=== PATIENT | male | born 1940 | race Caucasian/White ===

== ENCOUNTER → 2023-03-15 11:10 | Outpatient (REF) | payer MEDICARE, OTHER, SELFPAY ==
[2023-03-15 12:07] LABS: % Basophils 0.4 % (0-2); % Eosinophils 1.6 % (0-6); % Immature Granulocytes 0.5 % (0-0.5); % Lymphocytes 58.8 % (20.5-51.1); % Monocytes 6.4 % (1.7-9.3); % Neutrophils 32.3 % (42.2-75.2); Absolute Eosinophils 0.2 10^3/uL (0-0.7); Absolute Immature Granulocytes 0.1 10^3/uL (0-0.05); Absolute Lymphocytes 6.2 10^3/uL (1.2-3.4); Absolute Monocytes 0.7 10^3/uL (0.1-0.6); Absolute Neutrophils 3.4 10^3/uL (1.4-6.5); Hematocrit 39.3 % (39.0-52.0); Hemoglobin 12.9 g/dL (13.0-18.0); Mean Corp Hgb Conc. 32.8 g/dL (33.0-37.0); Mean Corpuscular Hgb 31.5 pg (27.0-31.0); Mean Corpuscular Volume 96.1 fL (80.0-94.0); Mean Platelet Volume 11.4 fL (7.4-10.4); Nucleated Red Blood Cells % 0 % (-); Platelet Count 140 10^3/uL (130-400); Red Blood Cell Count 4.09 10^6/uL (4.70-6.10); Red Cell Dist. Width 12.9 % (11.5-14.5); White Blood Cell Count 10.6 10^3/uL (4.8-10.8)
[2023-03-15 12:12] LABS: Blood Urea Nitrogen 19 mg/dl (9-20); Calcium 8.8 mg/dl (8.4-10.2); Carbon Dioxide 28 mmol/L (22-30); Chloride 105 mmol/L (98-107); Glucose 109 mg/dl (70-99); Potassium 4.5 mmol/L (3.5-5.1); Sodium 137 mmol/L (135-145); eGFR > 60.00
== END ==
LOC: OLABPV 11:10
PROVIDERS: ATTENDING PHYSICIAN Family Medicine
DX: R55 Syncope and collapse (principal)
CPT/HCPCS: 36415; 80048; 85025

== ENCOUNTER → 2023-04-28 13:57 | Outpatient (REF) | payer MEDICARE, OTHER, SELFPAY | LOC: DHCBS MAIN 13:57 | PROVIDERS: ATTENDING PHYSICIAN Nuclear Medicine Nuclear Cardiology; FAMILY PHYSICIAN Family Medicine | DX: R55 Syncope and collapse (principal); I49.3 Ventricular premature depolarization | CPT/HCPCS: 93306 ==

== ENCOUNTER → 2023-06-07 12:02 | Outpatient (REF) | payer MEDICARE, OTHER, SELFPAY ==
[2023-06-07 13:44] LABS: % Basophils 0.3 % (0-2); % Eosinophils 1.6 % (0-6); % Immature Granulocytes 0.4 % (0-0.5); % Lymphocytes 60.2 % (20.5-51.1); % Monocytes 6.8 % (1.7-9.3); % Neutrophils 30.7 % (42.2-75.2); Absolute Eosinophils 0.2 10^3/uL (0-0.7); Absolute Lymphocytes 5.6 10^3/uL (1.2-3.4); Absolute Monocytes 0.6 10^3/uL (0.1-0.6); Absolute Neutrophils 2.8 10^3/uL (1.4-6.5); Hematocrit 39.5 % (39.0-52.0); Hemoglobin 12.8 g/dL (13.0-18.0); Mean Corp Hgb Conc. 32.4 g/dL (33.0-37.0); Mean Corpuscular Hgb 30.6 pg (27.0-31.0); Mean Corpuscular Volume 94.5 fL (80.0-94.0); Mean Platelet Volume 11.5 fL (7.4-10.4); Nucleated Red Blood Cells % 0 % (-); Platelet Count 150 10^3/uL (130-400); Red Blood Cell Count 4.18 10^6/uL (4.70-6.10); Red Cell Dist. Width 13.2 % (11.5-14.5); White Blood Cell Count 9.2 10^3/uL (4.8-10.8)
[2023-06-07 13:50] LABS: ALT (SGPT) 19 U/L (0-50); AST (SGOT) 29 U/L (17-59); Albumin 4.2 g/dl (3.5-5.0); Alkaline Phosphatase 117 U/L (38-126); Blood Urea Nitrogen 17 mg/dl (9-20); Calcium 9.2 mg/dl (8.4-10.2); Carbon Dioxide 28 mmol/L (22-30); Chloride 104 mmol/L (98-107); Glucose 103 mg/dl (70-99); HDL Cholesterol 59 mg/dl; LDL Cholesterol, Calculated 60 mg/dl; Potassium 4.1 mmol/L (3.5-5.1); Sodium 138 mmol/L (135-145); Total Bilirubin 0.8 mg/dl (0.2-1.3); Total Cholesterol 143 mg/dl (50-199); Total Protein 6.9 g/dl (6.3-8.2); Triglyceride 121 mg/dl (10-149); Very Low Density Lipoprotein 24 mg/dl (0-30); eGFR > 60.00
[2023-06-07 14:28] LABS: Glycohemoglobin (HgbA1c) 6.1 % (4.0-5.6)
== END ==
LOC: OLABPV 12:02
PROVIDERS: ATTENDING PHYSICIAN Family Medicine
DX: R73.03 Prediabetes (principal); E78.2 Mixed hyperlipidemia; C91.11 Chronic lymphocytic leukemia of B-cell type in remission; C61 Malignant neoplasm of prostate; D64.9 Anemia, unspecified; R79.89 Other specified abnormal findings of blood chemistry
CPT/HCPCS: 36415; 80053; 80061; 83036; 84443; 85025

== ENCOUNTER → 2023-06-07 13:22 | Outpatient (REF) | payer MEDICARE, OTHER, SELFPAY | LOC: MRI 13:22 | PROVIDERS: ATTENDING PHYSICIAN Nurse Practitioner Adult Health; FAMILY PHYSICIAN Family Medicine | DX: G45.9 Transient cerebral ischemic attack, unspecified (principal); R55 Syncope and collapse; R47.9 Unspecified speech disturbances | CPT/HCPCS: 70551 ==

== ENCOUNTER → 2023-06-15 11:02 | Outpatient (REF) | payer MEDICARE, OTHER, SELFPAY ==
[2023-06-15 14:02] LABS: Testosterone, Total 21.1 ng/dl (72-623)
== END ==
LOC: OLABPV 11:02
PROVIDERS: ATTENDING PHYSICIAN Specialist
DX: C61 Malignant neoplasm of prostate (principal)
CPT/HCPCS: 36415; 84153; 84403

== ENCOUNTER → 2023-08-25 13:23 | Outpatient (REF) | payer MEDICARE, OTHER, SELFPAY | LOC: MRI 13:23 | PROVIDERS: ATTENDING PHYSICIAN Physician Assistant Surgical | DX: M47.892 Other spondylosis, cervical region (principal); M54.2 Cervicalgia | CPT/HCPCS: 72141 ==

== ENCOUNTER → 2023-09-16 12:04 | Outpatient (REF) | payer MEDICARE, OTHER, SELFPAY ==
[2023-09-16 12:31] LABS: Hematocrit 38.3 % (39.0-52.0); Hemoglobin 12.7 g/dL (13.0-18.0); Mean Corp Hgb Conc. 33.2 g/dL (33.0-37.0); Mean Corpuscular Hgb 30.8 pg (27.0-31.0); Mean Platelet Volume 10.9 fL (7.4-10.4); Platelet Count 158 10^3/uL (130-400); Red Blood Cell Count 4.12 10^6/uL (4.70-6.10); Red Cell Dist. Width 13.3 % (11.5-14.5); White Blood Cell Count 9.8 10^3/uL (4.8-10.8)
[2023-09-16 13:26] LABS: LDH 186 U/L (120-246)
[2023-09-16 13:40] LABS: % Basophils 0.4 % (0-2); % Eosinophils 1.9 % (0-6); % Immature Granulocytes 0.3 % (0-0.5); % Lymphocytes 64.2 % (20.5-51.1); % Monocytes 6.4 % (1.7-9.3); % Neutrophils 26.8 % (42.2-75.2); Absolute Eosinophils 0.2 10^3/uL (0-0.7); Absolute Lymphocytes 6.3 10^3/uL (1.2-3.4); Absolute Monocytes 0.6 10^3/uL (0.1-0.6); Absolute Neutrophils 2.6 10^3/uL (1.4-6.5); Nucleated Red Blood Cells % 0 % (-)
== END ==
LOC: OLABPV 12:04
PROVIDERS: ATTENDING PHYSICIAN Internal Medicine Hematology & Oncology
DX: C91.10 Chronic lymphocytic leukemia of B-cell type not having achieved remission (principal)
CPT/HCPCS: 36415; 83615; 85025

== ENCOUNTER → 2023-12-06 11:40 | Outpatient (REF) | payer MEDICARE, OTHER, SELFPAY ==
[2023-12-06 12:18] LABS: Hematocrit 38.6 % (39.0-52.0); Hemoglobin 12.9 g/dL (13.0-18.0); Mean Corp Hgb Conc. 33.4 g/dL (33.0-37.0); Mean Corpuscular Hgb 31.5 pg (27.0-31.0); Mean Corpuscular Volume 94.1 fL (80.0-94.0); Mean Platelet Volume 11.1 fL (7.4-10.4); Platelet Count 145 10^3/uL (130-400); Red Cell Dist. Width 13.2 % (11.5-14.5); White Blood Cell Count 8.7 10^3/uL (4.8-10.8)
[2023-12-06 12:41] LABS: ALT (SGPT) 21 U/L (0-50); AST (SGOT) 28 U/L (17-59); Albumin 4.2 g/dl (3.5-5.0); Alkaline Phosphatase 119 U/L (38-126); Blood Urea Nitrogen 22 mg/dl (9-20); Calcium 9.1 mg/dl (8.4-10.2); Carbon Dioxide 26 mmol/L (22-30); Chloride 104 mmol/L (98-107); Glucose 105 mg/dl (70-99); HDL Cholesterol 47 mg/dl; LDL Cholesterol, Calculated 72 mg/dl; Potassium 4.2 mmol/L (3.5-5.1); Sodium 142 mmol/L (135-145); Total Bilirubin 0.6 mg/dl (0.2-1.3); Total Cholesterol 138 mg/dl (50-199); Total Protein 6.8 g/dl (6.3-8.2); Triglyceride 98 mg/dl (10-149); Very Low Density Lipoprotein 19 mg/dl (0-30); eGFR > 60.00
[2023-12-06 13:26] LABS: % Basophils 0.6 % (0-2); % Immature Granulocytes 0.2 % (0-0.5); % Lymphocytes 63.2 % (20.5-51.1); % Monocytes 6.6 % (1.7-9.3); % Neutrophils 27.4 % (42.2-75.2); Absolute Basophils 0.1 10^3/uL (0-0.2); Absolute Eosinophils 0.2 10^3/uL (0-0.7); Absolute Lymphocytes 5.5 10^3/uL (1.2-3.4); Absolute Monocytes 0.6 10^3/uL (0.1-0.6); Absolute Neutrophils 2.4 10^3/uL (1.4-6.5); Nucleated Red Blood Cells % 0 % (-)
== END ==
LOC: OLABPV 11:40
PROVIDERS: ATTENDING PHYSICIAN Family Medicine
DX: D64.9 Anemia, unspecified (principal); R73.03 Prediabetes; E78.2 Mixed hyperlipidemia; C91.11 Chronic lymphocytic leukemia of B-cell type in remission; C61 Malignant neoplasm of prostate
CPT/HCPCS: 36415; 80053; 80061; 82728; 83036; 85025

== ENCOUNTER → 2024-01-10 10:09 | Outpatient (REF) | payer MEDICARE, OTHER, SELFPAY ==
[2024-01-10 11:06] LABS: PSA, Total - Diagnostic 0.32 ng/ml (0.0-4.0)
[2024-01-12 13:15] LABS: % Free Testosterone 1.4 % (1.6-2.9); Free Testosterone 5 pg/mL (47-244); Sex Hormone Binding Globulin 46 nmol/L (19-76); Total Testosterone 34 ng/dL (300-720)
== END ==
LOC: OLABPV 10:09
PROVIDERS: ATTENDING PHYSICIAN Internal Medicine
DX: C61 Malignant neoplasm of prostate (principal); Z79.818 Long term (current) use of other agents affecting estrogen receptors and estrogen levels
CPT/HCPCS: 36415; 84153; 84270; 84402; 84403

== ENCOUNTER 2024-01-12 14:03 | Emergency (ER) | payer MEDICARE, OTHER, SELFPAY ==
[2024-01-12 14:13] VITALS: BP 109/80
[2024-01-12 14:45] LABS: Hematocrit 35.8 % (39.0-52.0); Hemoglobin 11.8 g/dL (13.0-18.0); Mean Corpuscular Hgb 31.2 pg (27.0-31.0); Mean Corpuscular Volume 94.7 fL (80.0-94.0); Mean Platelet Volume 10.5 fL (7.4-10.4); Platelet Count 158 10^3/uL (130-400); Red Blood Cell Count 3.78 10^6/uL (4.70-6.10); Red Cell Dist. Width 13.3 % (11.5-14.5); White Blood Cell Count 12.8 10^3/uL (4.8-10.8)
[2024-01-12 15:04] LABS: ALT (SGPT) 22 U/L (0-50); AST (SGOT) 23 U/L (17-59); Alkaline Phosphatase 99 U/L (38-126); Blood Urea Nitrogen 23 mg/dl (9-20); Calcium 8.7 mg/dl (8.4-10.2); Carbon Dioxide 27 mmol/L (22-30); Chloride 102 mmol/L (98-107); Glucose 143 mg/dl (70-99); Lipase 43 U/L (23-300); Potassium 4.1 mmol/L (3.5-5.1); Sodium 137 mmol/L (135-145); Total Bilirubin 0.7 mg/dl (0.2-1.3); Total Protein 6.4 g/dl (6.3-8.2); eGFR > 60.00
[2024-01-12 15:08] LABS: Troponin I < 0.012 ng/ml
[2024-01-12 15:21] VITALS: BP 126/60
[2024-01-12 15:34] LABS: % Basophils 0.2 % (0-2); % Eosinophils 0.1 % (0-6); % Immature Granulocytes 0.4 % (0-0.5); % Lymphocytes 49.8 % (20.5-51.1); % Monocytes 4.4 % (1.7-9.3); % Neutrophils 45.1 % (42.2-75.2); Absolute Immature Granulocytes 0.1 10^3/uL (0-0.05); Absolute Lymphocytes 6.4 10^3/uL (1.2-3.4); Absolute Monocytes 0.6 10^3/uL (0.1-0.6); Absolute Neutrophils 5.8 10^3/uL (1.4-6.5); Nucleated Red Blood Cells % 0 % (-)
--- NOTE | 2024-01-12 16:00 | ED.GENMED ---
History of Present Illness
General
Chief Complaint: Fainting/Passed Out
Time Seen by Provider: 01/12/24 16:00
History of Present Illness
History of Present Illness:
TIME OF INITIAL ENCOUNTER: 4 PM
HPI: The patient presents due to episodes of near syncope in the setting of having sensation that he needs to vomit. This has been a recurring issue for him. He had somewhat of a similar episode earlier this year and ended up having a pacemaker
placed due to sick second sinus pause. He has no chest pain.
EXAM:
GENERAL: Well appearing in no distress
HEENT: Moist oral mucosa
CARDIOVASCULAR: No murmurs, normal heart rate, regular rhythm, No chest wall tenderness
PULMONARY: No respiratory distress, breath sounds are clear and equal
ABDOMEN: Soft with no peritoneal signs, no tenderness
NEUROLOGIC: Excellent strength all extremities, no coordination deficits
PSYCHIATRIC: Appropriate mental status, normal insight and judgement
EXTREMITIES: Nontender, no edema, moves all extremities equally
SKIN: No rash, no lesions
NUMBER AND COMPLEXITY OF PROBLEMS ADDRESSED AT THE ENCOUNTER
� Chronic conditions affecting care: High blood pressure, hyperlipidemia, prostate cancer, bradycardia
� Acute Exacerbation and/or Progression of Chronic Illness: This is an acute problem
� Differential Diagnosis includes: Dysrhythmia, pacemaker malfunction, vasovagal events
AMOUNT AND/OR COMPLEXITY OF DATA TO BE REVIEWED AND ANALYZED
� I performed an independent evaluation of and my interpretation is:
EKG: A paced at 50, nonspecific ST abnormality, inferior Q waves
CT:
X-rays:
Laboratory Studies: White count 12.8, hemoglobin 11.8, chemistries relatively unremarkable with exception of slightly elevated BUN and slightly elevated glucose, troponin negative
Other:
� Review of other/old records: I reviewed records, the patient had an echo in April 2023 related to syncope and at that time the EF was 50 to 55%, diastolic function was indeterminate, and there was no regional wall motion
abnormality. Was admitted with TIA/transient aphasia and February 2023. He did have a 6-second sinus pause during that hospitalization and pacemaker was placed 03/07/2023.
� Clinical information was obtained by an independent historian: I spoke to the at bedside
� Prescriptions/Medications Considered but not given: Considered IV fluids however the patient appears well-hydrated and does not feel dehydrated
� Further testing considered but not performed:
RISK OF COMPLICATIONS AND/OR MORBIDITY OR MORTALITY OF PATIENT MANAGEMENT
� Social determinants of health affecting care: Lives at home
� Discussion with other providers: I notified Dr. Porter who agrees with outpatient management.
� Escalation of care including admission/observation vs risk of discharge considered: Other than minimal leukocytosis (patient states he may have CLL), and mild BUN elevation and mild glucose elevation, he has an unremarkable ED
workup. He did have a pacemaker interrogation today which shows that he is atrially paced two thirds of the time.
ANY OTHER UPDATES:
5 PM: I reassessed patient no further episodes, his abdomen is soft and nontender and he reports no abdominal pain
Past History
Past History
ED Past Medical History: Other (Chronic neck and back problems. 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 Had neck fusion surgery 35 years ago and has since had '2 other bones in my neck fuse.' Last Neck MRI 2 years ago. Has had episodes in the past where he's
'lost use of my left arm' from neck pain and legs 'giving out' prior to recent laminectomy surgery. )
ED Past Surgical History: Other (L spine laminectomy 3 days ago. Seems to have no problems with that. Neck fusion 35 yearw ago. Has chronic neck pain. Several Bilateral shoulder surgeries for bone spurs, tears. )
Social History
Personal:
Living: with family
Employment: Employed (office work )
Phy Exam
Physical Exam
Physical Exam:
See HPI
Course
Orders/Labs/Results
Orders:
Orders
01/12/24 14:18
Electrocardiogram (*1) Urgent
Reason for Study: Abdominal Pain
EKG- Treatment ONCE
01/12/24 14:34
Complete Blood Count/With Diff Urgent
Comprehensive Metabolic Panel Urgent
Lipase Urgent
Troponin I Urgent
01/12/24 15:15
EKG [Electrocardiogram (*1)] Urgent
Reason for Study: Vertigo / Dizzy
EKG- Treatment ONCE
Abnormal Lab Results
01/12/24
14:34
WBC 12.8 H 10^3/uL
(4.8-10.8)
RBC 3.78 L 10^6/uL
(4.70-6.10)
Hgb 11.8 L g/dL
(13.0-18.0)
Hct 35.8 L %
(39.0-52.0)
MCV 94.7 H fL
(80.0-94.0)
MCH 31.2 H pg
(27.0-31.0)
MPV 10.5 H fL
(7.4-10.4)
Abs Immat Gran (auto) 0.1 H 10^3/uL
(0-0.05)
Absolute Lymphs (auto) 6.4 H 10^3/uL
(1.2-3.4)
BUN 23 H mg/dl
(9-20)
Glucose 143 H mg/dl
(70-99)
01/12/24 14:34
01/12/24 14:34
Vital Signs
Initial and Last Documented VS:
Initial Vital Signs
Temp Pulse Resp BP Pulse Ox
36.7 C 51 16 109/80 97
01/12/24 14:13 01/12/24 14:13 01/12/24 14:13 01/12/24 14:13 01/12/24 14:13
Last Documented Vital Signs
Temp Pulse Resp BP Pulse Ox
36.7 C 50 18 126/60 94
01/12/24 14:13 01/12/24 15:21 01/12/24 15:21 01/12/24 15:21 01/12/24 15:21
*Critical Care Note
Total Time (30-74mins, 75-104mins- exclusive of procedures): Not Applicable
ED Attending Note
-
Portions of this chart may have been created with voice recognition software.� Occasional wrong word or��sound alike� substitutions may have occurred due to the inherent limitations of voice recognition software.
Discharge Plan
Departure
Patient Disposition: Home (Routine Discharge)
Date of Disposition: 01/12/24
Time of Disposition: 17:02
Patient with high blood pressure during this ER visit?: Yes
Discharge Problem:
Near syncope
Instructions: BLOOD PRESSURE
Prescriptions:
No Action
atorvastatin 20 mg Tablet
20 mg PO DAILY
tamsulosin 0.4 mg Capsule
0.4 mg PO BID
pantoprazole 40 mg Tablet,Delayed Release (Dr/Ec)
40 mg PO DAILY
Lactobacillus acidoph-pectin Capsule
1 cap PO DAILY
nystatin 100,000 unit/gram Powder
1 applic TOPICAL PRN PRN (Reason: as directed)
fluticasone propionate [Allergy Relief (fluticasone)] 50 mcg/actuation [place],Suspension
1 spray INTRANASAL DAILY PRN (Reason: as directed)
Patient Comments:
past week poss 1-2 week
Tart Santos Extract 1,000 mg Capsule
1,000 mg PO DAILY
Fiber (psyllium husk)
1 dose PO DAILY
Patient Comments:
2 tsp daily
Glucosamine Chondroitin
1 dose PO DAILY
Vitamin D3
1 dose PO DAILY
mecobalamin (vitamin B12)
1 dose IM .MONTHLY
saw palmetto
1 dose PO DAILY
acetaminophen 325 mg Tablet
650 mg PO Q4HPRN PRN (Reason: mild pain/HERNANDEZ/temp> 100.4F) Qty: 20 0RF
bacitracin zinc 500 unit/gram Ointment
1 applic topical TID 5 Days Qty: 14 0RF
aspirin 81 mg Tablet,Delayed Release (Dr/Ec)
81 mg PO DAILY Qty: 30 0RF
Referrals:
Masters,Phyllis Alvarenga MD [Family Provider] -
Activity Restrictions/Additional Instructions:
The cause of your symptoms is unclear. We did interrogate your device and it appears to be working appropriately. You are atrially paced about two thirds of the time. There was no ventricular dysrhythmia noted. I did notify Dr. Porter covering
for Dr. Bravo who agrees with outpatient management. Return here if worse or other concerns.
Interventions
Interventions:
*Risk Screen - Suicide Last Done: 01/12/24 14:13
*General Assessment Last Done: 01/12/24 14:13
*ED COVID-19 Vaccine History Last Done: 01/12/24 14:13
Discharge Date and Time
Print Language: GERMAN
[2024-01-12 17:00] VITALS: BP 131/60
== END 2024-01-12 17:30 | disposition home or self-care (01) ==
LOC: EMR 14:03
PROVIDERS: Emergency Medicine; EMERGENCY PHYSICIAN Emergency Medicine; FAMILY PHYSICIAN Internal Medicine
DX: R55 Syncope and collapse (principal); Z98.1 Arthrodesis status
CPT/HCPCS: 99283; 80053; 83690; 84484; 85025; 93005

== ENCOUNTER → 2024-06-08 09:49 | Outpatient (REF) | payer MEDICARE, OTHER, SELFPAY ==
[2024-06-08 11:35] LABS: % Basophils 0.1 % (0-2); % Eosinophils 1.2 % (0-6); % Immature Granulocytes 0.2 % (0-0.5); % Lymphocytes 66.2 % (20.5-51.1); % Neutrophils 28.3 % (42.2-75.2); Absolute Eosinophils 0.2 10^3/uL (0-0.7); Absolute Lymphocytes 10.7 10^3/uL (1.2-3.4); Absolute Monocytes 0.7 10^3/uL (0.1-0.6); Absolute Neutrophils 4.6 10^3/uL (1.4-6.5); Hematocrit 42.8 % (39.0-52.0); Hemoglobin 13.8 g/dL (13.0-18.0); Mean Corp Hgb Conc. 32.2 g/dL (33.0-37.0); Mean Corpuscular Hgb 31.4 pg (27.0-31.0); Mean Corpuscular Volume 97.3 fL (80.0-94.0); Mean Platelet Volume 10.6 fL (7.4-10.4); Nucleated Red Blood Cells % 0 % (-); Platelet Count 164 10^3/uL (130-400); Red Cell Dist. Width 13.4 % (11.5-14.5); White Blood Cell Count 16.2 10^3/uL (4.8-10.8)
[2024-06-08 11:56] LABS: Glycohemoglobin (HgbA1c) 6.2 % (4.0-5.6)
[2024-06-08 13:24] LABS: ALT (SGPT) 36 U/L (0-50); AST (SGOT) 31 U/L (17-59); Albumin 4.6 g/dl (3.5-5.0); Alkaline Phosphatase 93 U/L (38-126); Blood Urea Nitrogen 21 mg/dl (9-20); Calcium 9.1 mg/dl (8.4-10.2); Carbon Dioxide 24 mmol/L (22-30); Chloride 106 mmol/L (98-107); Glucose 96 mg/dl (70-99); HDL Cholesterol 65 mg/dl; LDL Cholesterol, Calculated 93 mg/dl; Potassium 4.2 mmol/L (3.5-5.1); Sodium 141 mmol/L (135-145); Total Cholesterol 175 mg/dl (50-199); Triglyceride 87 mg/dl (10-149); Very Low Density Lipoprotein 17 mg/dl (0-30); eGFR > 60.00
[2024-06-08 13:31] LABS: TSH Reflex To Free T4 2.32 uIU/ml (0.47-4.68)
== END ==
LOC: OLABPV 09:49
PROVIDERS: ATTENDING PHYSICIAN Family Medicine
DX: R73.03 Prediabetes (principal); E78.2 Mixed hyperlipidemia; C91.11 Chronic lymphocytic leukemia of B-cell type in remission; C61 Malignant neoplasm of prostate; D64.9 Anemia, unspecified; Z13.29 Encounter for screening for other suspected endocrine disorder
CPT/HCPCS: 36415; 80053; 80061; 82728; 83036; 84443; 85025

== ENCOUNTER → 2024-09-11 09:22 | Outpatient (REF) | payer MEDICARE, OTHER, SELFPAY ==
[2024-09-11 10:59] LABS: Hematocrit 40.4 % (39.0-52.0); Hemoglobin 12.9 g/dL (13.0-18.0); Mean Corp Hgb Conc. 31.9 g/dL (33.0-37.0); Mean Corpuscular Volume 97.1 fL (80.0-94.0); Platelet Count 181 10^3/uL (130-400); Red Cell Dist. Width 13.0 % (11.5-14.5)
[2024-09-11 12:14] LABS: LDH 235 U/L (120-246)
[2024-09-11 12:22] LABS: Nucleated Red Blood Cells % 0 % (-)
== END ==
LOC: OLABPV 09:22
PROVIDERS: ATTENDING PHYSICIAN Nurse Practitioner Primary Care
DX: C91.10 Chronic lymphocytic leukemia of B-cell type not having achieved remission (principal)
CPT/HCPCS: 36415; 83615; 85025

== ENCOUNTER 2024-09-22 17:52 | Emergency (ER) | payer MEDICARE, OTHER, SELFPAY ==
[2024-09-22 18:03] VITALS: BP 147/84
[2024-09-22 18:37] LABS: Hematocrit 38.5 % (39.0-52.0); Hemoglobin 12.8 g/dL (13.0-18.0); Mean Corp Hgb Conc. 33.2 g/dL (33.0-37.0); Mean Corpuscular Volume 93.4 fL (80.0-94.0); Nucleated Red Blood Cells % 0 % (-); Platelet Count 160 10^3/uL (130-400); Red Cell Dist. Width 12.6 % (11.5-14.5)
[2024-09-22 18:55] LABS: ALT (SGPT) 18 U/L (0-50); AST (SGOT) 23 U/L (17-59); Albumin 4.3 g/dl (3.5-5.0); Alkaline Phosphatase 100 U/L (38-126); Blood Urea Nitrogen 17 mg/dl (9-20); Calcium 8.6 mg/dl (8.4-10.2); Carbon Dioxide 26 mmol/L (22-30); Chloride 104 mmol/L (98-107); Glucose 117 mg/dl (70-99); Potassium 4.0 mmol/L (3.5-5.1); Sodium 137 mmol/L (135-145); Total Protein 7.0 g/dl (6.3-8.2); eGFR > 60.00
--- NOTE | 2024-09-22 22:15 | ED.SKININJ ---
HPI-Injury
<Willie Richter MD, Resident - Last Filed: 09/22/24 22:45>
General
Chief Complaint: Skin Problem
Source: patient and significant other
Time Seen by Provider: 09/22/24 21:55
Nursing documentation reviewed up to this point in time: agreed with
History of Present Illness-Injury
Initial Injury comments:
82-year-old male with a past medical history of prostatic hypertrophy, hypertension, hyperlipidemia and recent Mohs surgery for basal cell carcinoma this past Tuesday comes to the ED due to increased swelling, tenderness and erythema at the site
of Mohs surgery on the right side of his face. He started noticing changes in swelling around but he developed pain and started noticing pus yesterday. He has tried taking Tylenol to help with the pain but has not really helped with the
tenderness too much. He has been feeling tired and has some nausea but no vomiting or diarrhea. He tried to get in contact with his Mohs surgeon Dr. Cervantes at [facility] [place] but was not able to get contact with him.
He does not report any shortness of breath, chest pain, headaches. Area of tenderness is mainly around the incision site he continues to notice from the site.
Past History
<Willie Richter MD, Resident - Last Filed: 09/22/24 22:45>
Past History
ED Past Medical History: GERD, HTN, Hypercholesterolemia, Other (Chronic neck and back problems. 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 Had neck fusion surgery 35 years ago and has since had '2 other bones in my neck fuse.' Last Neck MRI 2 years ago. Has had
episodes in the past where he's 'lost use of my left arm' from neck pain and legs 'giving out' prior to recent laminectomy surgery. ), Other (Pacemaker due to mitral regurgitation) and Other (Prostatic hypertrophy)
ED Past Surgical History: Cardiac (Pacemaker) and Other (L spine laminectomy 3 days ago. Seems to have no problems with that. Neck fusion 35 yearw ago. Has chronic neck pain. Several Bilateral shoulder surgeries for bone spurs, tears. )
Social History
Personal:
Living: with family
Employment: Employed (office work )
Review of Systems
<Willie Richter MD, Resident - Last Filed: 09/22/24 22:45>
Review of Systems
Allergies reviewed?: Yes
Other source history: family
All Other Systems: ROS reviewed and negative except as documented in HPI and ROS
Constitutional: Reports fatigue; Denies fever or chills
EENT: Reports no symptoms
Respiratory: Reports no symptoms
Cardiac: Reports no symptoms
ABD/GI: Reports nausea; Denies abdominal pain, vomiting or diarrhea
: Reports no symptoms
Skin: Reports other (Erythema, swelling, tenderness around area of incision on the right side of face)
Neurological: Reports no symptoms
Endocrine: Reports no symptoms
Hematologic/Lymphatic: Reports no symptoms
Psychiatric: Reports no symptoms
Skin Exam
<Willie Richter MD, Resident - Last Filed: 09/22/24 22:45>
other
Other:
Right side face multiple sutures from Mohs surgery. Area around sutures inflamed, erythematous, with some pustules noted on incision site. Tender to the touch.
Phy Exam
<Willie Richter MD, Resident - Last Filed: 09/22/24 22:45>
General Physical Exam
General Presentation: mild distress
General age: appears stated age
General Skin: warm and dry
General Habitus: normal
General Mental: alert
General Hydration: appears well hydrated
Cardiovascular Exam
Cardiovascular Exam: regular rate/rhythm, no edema and no murmur
Pulmonary Exam
Pulmonary Exam: lungs clear, no respiratory distress, no crackles and no wheezing
Gastrointestinal Exam
Gastrointestinal Exam: normal bowel sounds, non tender, soft and non distended
Musculoskeletal Exam
Musculoskeletal Exam: no edema
Skin Exam
Skin Exam: erythema, redness, tenderness, warmth and other (Erythema, tenderness, warmth, areas of sutures in the right side of the face following Mohs surgery)
Sepsis
<Willie Richter MD, Resident - Last Filed: 09/22/24 22:45>
Sepsis Screening
Sepsis Assessment: Sepsis Ruled Out
Sepsis Screen
Sepsis Screen: Sepsis Ruled Out
Date: 09/22/24
Time: 22:41
<Celena London, DO - Last Filed: 09/22/24 22:49>
Sepsis Screen
Sepsis Screen: Sepsis Ruled Out
Date: 09/22/24
Time: 22:41
Course
<Willie Richter MD, Resident - Last Filed: 09/22/24 22:45>
Orders/Labs/Results
Orders:
Orders
09/22/24 18:19
Complete Blood Count/With Diff Urgent
Comprehensive Metabolic Panel Urgent
Lactic Acid Q4H
Comment: ON ICE, CANCEL 2ND ORDER IF FIRST LACTIC ACID LEVEL <2
Blood Culture Q20M
ADIN Source: Blood/Venous
Specimen Description:
Comment: Urgent from separate sites. If patient screens positive for possible sepsis
09/22/24 18:20
Wound Culture [Wound/Abscess/Other Culture] Urgent
ADIN Source: Skin Surface
Specimen Description:
Date Specimen was Collected: 09/22/24
Time Specimen was Collected: 18:17
Comment: surgical site
09/22/24 18:35
Blood Culture Q20M
ADIN Source: Blood/Venous
Specimen Description:
Comment: Urgent from separate sites. If patient screens positive for possible sepsis
09/22/24 22:40
Doxycycline [Vibramycin] 200 mg PO NOW STA
Abnormal Lab Results
09/22/24
18:19
WBC 12.3 H 10^3/uL
(4.8-10.8)
RBC 4.12 L 10^6/uL
(4.70-6.10)
Hgb 12.8 L g/dL
(13.0-18.0)
Hct 38.5 L %
(39.0-52.0)
MCH 31.1 H pg
(27.0-31.0)
Abs Immat Gran (auto) 0.1 H 10^3/uL
(0-0.05)
Absolute Lymphs (auto) 5.1 H 10^3/uL
(1.2-3.4)
Absolute Monos (auto) 1.1 H 10^3/uL
(0.1-0.6)
Glucose 117 H mg/dl
(70-99)
09/22/24 18:19
09/22/24 18:19
Vital Signs
Initial and Last Documented VS:
Initial Vital Signs
Temp Pulse Resp BP Pulse Ox
98.6 F 79 16 147/84 95
09/22/24 18:03 09/22/24 18:03 09/22/24 18:03 09/22/24 18:03 09/22/24 18:03
Last Documented Vital Signs
Temp Pulse Resp BP Pulse Ox
98.6 F 79 16 147/84 95
09/22/24 18:03 09/22/24 18:03 09/22/24 18:03 09/22/24 18:03 09/22/24 22:17
Genlt;Celena London, - Last Filed: 09/22/24 22:49>
Orders/Labs/Results
Orders:
Orders
09/22/24 18:19
Complete Blood Count/With Diff Urgent
Comprehensive Metabolic Panel Urgent
Lactic Acid Q4H
Comment: ON ICE, CANCEL 2ND ORDER IF FIRST LACTIC ACID LEVEL <2
Blood Culture Q20M
ADIN Source: Blood/Venous
Specimen Description:
Comment: Urgent from separate sites. If patient screens positive for possible sepsis
09/22/24 18:20
Wound Culture [Wound/Abscess/Other Culture] Urgent
ADIN Source: Skin Surface
Specimen Description:
Date Specimen was Collected: 09/22/24
Time Specimen was Collected: 18:17
Comment: surgical site
09/22/24 18:35
Blood Culture Q20M
ADIN Source: Blood/Venous
Specimen Description:
Comment: Urgent from separate sites. If patient screens positive for possible sepsis
09/22/24 22:40
Doxycycline [Vibramycin] 200 mg PO NOW STA
Abnormal Lab Results
09/22/24
18:19
WBC 12.3 H 10^3/uL
(4.8-10.8)
RBC 4.12 L 10^6/uL
(4.70-6.10)
Hgb 12.8 L g/dL
(13.0-18.0)
Hct 38.5 L %
(39.0-52.0)
MCH 31.1 H pg
(27.0-31.0)
Abs Immat Gran (auto) 0.1 H 10^3/uL
(0-0.05)
Absolute Lymphs (auto) 5.1 H 10^3/uL
(1.2-3.4)
Absolute Monos (auto) 1.1 H 10^3/uL
(0.1-0.6)
Glucose 117 H mg/dl
(70-99)
09/22/24 18:19
09/22/24 18:19
Vital Signs
Initial and Last Documented VS:
Initial Vital Signs
Temp Pulse Resp BP Pulse Ox
98.6 F 79 16 147/84 95
09/22/24 18:03 09/22/24 18:03 09/22/24 18:03 09/22/24 18:03 09/22/24 18:03
Last Documented Vital Signs
Temp Pulse Resp BP Pulse Ox
98.6 F 79 16 147/84 95
09/22/24 18:03 09/22/24 18:03 09/22/24 18:03 09/22/24 18:03 09/22/24 22:17
<Willie Richter MD, Resident - Last Filed: 09/22/24 22:45>
MDM/Problems Addressed
Differential Diagnosis Includes:
Cellulitis, abscess in surgical area, sepsis
MDM/Problems Addressed:
83-year-old male with recent Mohs surgery on Tuesday close to the ED due to increased erythema, tenderness, edema around the areas of incision following surgery. Pustules noted on examination. Very tender to the touch.
Labs showed leukocytosis, but lactic acid levels normal. Less likely to be sepsis.
Blood and wound cultures taken
We will start on antibiotic therapy with Doxycycline 200mg po and continue 100mg BID for 7 days
Counseled patient to follow up with Moh's surgeon Tuesday for further management
Chronic conditions affecting care: HTN and Arrhythmia
<Willie Richter MD, Resident - Last Filed: 09/22/24 22:45>
*Pulse Oximetry
SaO2: 95
Oxygen Mode of Delivery: Room air
Patient hypoxic: no
*Critical Care Note
Total Time (30-74mins, 75-104mins- exclusive of procedures): Not Applicable
ED Attending Note
<Willie Richter MD, Resident - Last Filed: 09/22/24 22:45>
-
Portions of this chart may have been created with voice recognition software.� Occasional wrong word or��sound alike� substitutions may have occurred due to the inherent limitations of voice recognition software.
<Celena London, DO - Last Filed: 09/22/24 22:49>
ED Attending Note
Patient seen and examined by attending physician: Yes
I performed a history and physical exam of patient and discussed management with resident, I reviewed resident's note and agree with documented findings and plan of care.: Yes
ED Attending Note:
83-year-old gentleman with history of basal cell carcinoma underwent Mohs surgical excision right facial region 3 days ago. He admits that surgical procedure required significantly deep Mohs surgical excision layers. He complains of progressive
redness, swelling to right facial surgical site and some exudate from surgical site today. He has had no bleeding. No fever nor chills. No difficulty chewing or swallowing. No neck pain or headache.
He did attempt to call his sample wrapper today without success.
No history of immunocompromise, no history of diabetes. He does have history of surveillance MRSA positive nasal swab.
83-year-old gentleman appears his stated age, bright and alert, pleasant, appears in no acute distress. is accompanying. He is afebrile, oral temperature 98.1. Normotensive.
HEENT: There is a serpiginous vertical surgical incision approximately 6 cm right facial region with intact sutures. There is moderate focal erythema, mild focal soft tissue swelling, moderate local tenderness to palpation. There is scant exudate
mid aspect of the wound. There is no fluctuance. No erythema nor tenderness to the ear. There is no tenderness no swelling to the mandible nor submandibular region nor cervical region. No cervical adenopathy appreciated. Oral mucosa is moist.
Posterior pharynx is clear.
Neck is supple, nontender.
Concern for early postop wound infection versus wound healing.
It is reassuring the patient has been afebrile.
Labs reveal mildly elevated white blood cell count of 12.3. Mild but stable anemia. Lactic acid is normal. Wound culture has been obtained.
No history of immunocompromise.
At this point nothing to suggest significant or serious wound infection/facial cellulitis nor abscess formation, and nothing to suggest sepsis. There is however concern for early postop wound infection and due to history of MRSA would recommend
initiation of doxycycline for coverage of potential MRSA.
No indication for acute hospitalization.
Will give a dose of doxycycline now and plan for 1 week course of doxycycline twice daily.
Patient has been offered a dose of Tylenol for pain which he declines and states he will take this at home.
Recommend supportive measures, keeping head of the bed elevated, local ice versus heat.
Discussed importance of prompt follow-up with sample wrapper with call to the office first thing Tuesday.
Strict return precautions discussed.
Discharge Plan
Departure
Condition: Fair
Discharge Problem:
Cellulitis, face, Hypertension
Instructions: Cellulitis (Skin Infection), Adult (DC), BLOOD PRESSURE
Prescriptions:
No Action
atorvastatin 20 mg Tablet
20 mg PO DAILY
tamsulosin 0.4 mg Capsule
0.4 mg PO BID
pantoprazole 40 mg Tablet,Delayed Release (Dr/Ec)
40 mg PO DAILY
Lactobacillus acidoph-pectin Capsule
1 cap PO DAILY
nystatin 100,000 unit/gram Powder
1 applic TOPICAL PRN PRN (Reason: as directed)
fluticasone propionate [Allergy Relief (fluticasone)] 50 mcg/actuation [place],Suspension
1 spray INTRANASAL DAILY PRN (Reason: as directed)
Patient Comments:
past week poss 1-2 week
Tart Santos Extract 1,000 mg Capsule
1,000 mg PO DAILY
Fiber (psyllium husk)
1 dose PO DAILY
Patient Comments:
2 tsp daily
Glucosamine Chondroitin
1 dose PO DAILY
Vitamin D3
1 dose PO DAILY
mecobalamin (vitamin B12)
1 dose IM .MONTHLY
saw palmetto
1 dose PO DAILY
acetaminophen 325 mg Tablet
650 mg PO Q4HPRN PRN (Reason: mild pain/HERNANDEZ/temp> 100.4F) Qty: 20 0RF
bacitracin zinc 500 unit/gram Ointment
1 applic topical TID 5 Days Qty: 14 0RF
aspirin 81 mg Tablet,Delayed Release (/Ec)
81 mg PO DAILY Qty: 30 0RF
Referrals:
Carlitos Cervantes [Other, Dermatology] - Call in 1-3 days for appt
Referral Note: Please follow up with Dr. Cervantes regarding your Moh's Surgery
John Luke Jr., DO [Family Provider, Internal Medicine] - Call in 1-3 days for appt
Interventions
Interventions:
*Risk Screen - Suicide Last Done: 09/22/24 18:03
*Neglect/Abuse Screening Last Done: 09/22/24 18:03
Discharge Date and Time
Print Language: VENEZUELAN
[2024-09-22] MEDS: VIBRAMYCIN 200 MG PO (22:54)
== END 2024-09-22 23:04 | disposition home or self-care (01) ==
LOC: EMR 17:52
PROVIDERS: Emergency Medicine; EMERGENCY PHYSICIAN Emergency Medicine; FAMILY PHYSICIAN Family Medicine
DX: L03.211 Cellulitis of face (principal); I10 Essential (primary) hypertension; D72.829 Elevated white blood cell count, unspecified; D64.9 Anemia, unspecified; E78.00 Pure hypercholesterolemia, unspecified; I49.9 Cardiac arrhythmia, unspecified; N40.0 Benign prostatic hyperplasia without lower urinary tract symptoms; M54.2 Cervicalgia; G89.28 Other chronic postprocedural pain; Z85.828 Personal history of other malignant neoplasm of skin; Z86.14 Personal history of Methicillin resistant Staphylococcus aureus infection; Z95.0 Presence of cardiac pacemaker; Z98.1 Arthrodesis status
CPT/HCPCS: 99283; 80053; 83605; 85025; 87040; 87070; 87147; 87205

== ENCOUNTER → 2024-11-27 11:27 | Outpatient (REF) | payer MEDICARE, OTHER, SELFPAY ==
[2024-11-27 13:08] LABS: PSA, Total - Diagnostic 0.84 ng/ml (0.0-4.0)
== END ==
LOC: OLABPV 11:27
PROVIDERS: ATTENDING PHYSICIAN Family Medicine Geriatric Medicine; REFERRING PHYSICIAN Specialist
DX: C61 Malignant neoplasm of prostate (principal); Z79.818 Long term (current) use of other agents affecting estrogen receptors and estrogen levels
CPT/HCPCS: 36415; 84153; 84270; 84402; 84403